=== PATIENT | male | born 1970 | race Caucasian/White ===

== ENCOUNTER 2016-08-08 12:47 | Emergency (ER) | payer MEDICAID, OTHER ==
[~2016-08-08] VITALS: Ht 170.2 cm; Wt 67.0 kg
[2016-08-08 13:00] VITALS: BP 136/75; PULSE 78; RESP 21; TEMP 98.7; O2SAT 97
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
[2016-08-08 13:40] LABS: WHITE BLOOD COUNT 9.3 TH/MM3 (4.0-11.0)
[2016-08-08 13:41] LABS: AUTOMATED NEUTROPHIL # 5.6 TH/MM3 (1.8-7.7); BASOPHIL # 0.2 TH/MM3 (0-0.2); BASOPHIL % 2.1 % (0.0-2.0); EOSINOPHIL # 0.5 TH/MM3 (0-0.4); EOSINOPHIL % 5.7 % (0.0-4.0); HEMATOCRIT 49.7 % (39.0-51.0); HEMO FLAGS DIFF FINAL; LYMPH % 23.9 % (9.0-44.0); LYMPHOCYTE # 2.2 TH/MM3 (1.0-4.8); MEAN CELL VOLUME 83.4 FL (80.0-100.0); MEAN CORPUSCULAR HEMOGLOBIN 28.2 PG (27.0-34.0); MEAN CORPUSCULAR HGB CONC 33.8 % (32.0-36.0); MONO % 7.6 % (0.0-8.0); NEUT % 60.7 % (16.0-70.0); PLATELET COUNT 255 TH/MM3 (150-450); RED BLOOD COUNT 5.96 MIL/MM3 (4.50-5.90); RED CELL DISTRIBUTION WIDTH 13.3 % (11.6-17.2)
[2016-08-08] MEDS ORDERED: IOHEXOL 350 MG/ML 10 ML VIAL (for RAD DIAG) IV ONE (13:42)
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
[2016-08-08 14:09] LABS: BICARBONATE 23.7 MEQ/L (21.0-32.0)
[2016-08-08 14:10] LABS: POTASSIUM 4.6 MEQ/L (3.5-5.1)
[2016-08-08 15:00] VITALS: BP 118/77; PULSE 73; RESP 18; O2SAT 96
[2016-08-08] MEDS ORDERED: KETOROLAC TROMETHAMINE 30 MG/ML (IVP) VIAL IV PUSH ONE (15:30)
[2016-08-08] MEDS ORDERED: CYCL1TAB29 PO (16:40)
[2016-08-08] MEDS ORDERED: DICL50TA PO (16:40)
[2016-08-08 17:00] VITALS: RESP 16
[2016-08-08 17:18] VITALS: BP 127/82
--- NOTE | 2016-08-09 16:19 | EKG ---
Date Performed: 08/08/2016 Time Performed: 13:04:47 PTAGE: 46 years EKG: Sinus rhythm NORMAL ECG NO PREVIOUS TRACING DOCTOR: Terrell Charlton Interpretating Date/Time 08/09/2016 16:18:01
== END 2016-08-08 17:19 | disposition home or self-care (01) ==
LOC: NEPE 12:47
DX: S16.1XXA Strain of muscle, fascia and tendon at neck level, initial encounter (principal); S29.9XXA Unspecified injury of thorax, initial encounter; R20.0 Anesthesia of skin; R20.2 Paresthesia of skin; V89.2XXA Person injured in unspecified motor-vehicle accident, traffic, initial encounter
CPT/HCPCS: 70450; 71260; 72125; 80048; 85025; 93005; 96374; 99285; J1885; Q9967